=== PATIENT | female | born 1990 | race African-American/Black ===

== ENCOUNTER 2016-09-16 15:16 | Emergency (ER) | payer OTHER, SELFPAY ==
[~2016-09-16] VITALS: Ht 165.1 cm; Wt 101.6 kg
[~2016-09-16 15:16] MED LIST: ALBUTEROL2.5 MG/3 M HHN
[2016-09-16 16:05] VITALS: BP 128/92
[2016-09-16] MEDS ORDERED: ACETAMINOPHEN-1 EAC1 ORAL (16:24)
[2016-09-16] MEDS ORDERED: BACTRIM DS TAB1 EAC1 ORAL (16:24)
[2016-09-16] MEDS ORDERED: CLINDAMYCIN HC300 MG ORAL (16:24)
[2016-09-16 16:30] VITALS: BP 128/92
[2016-09-16] MEDS ORDERED: Tylenol #3 tab (300mg/30mg) ORAL ONE (16:30)
--- NOTE | 2016-09-16 20:26 | Emergency Room Report ---
History of Present Illness General Chief Complaint: Animal Bite Source: Patient Present Illness HPI 26-year-old female presents ED complaining of left hand pain and swelling. States that 2 days ago she was scratched by her cat. States her cat has all vaccinations. Patient is here complaining of pain and increased swelling. patient believes there is an infection. Denies any fevers or chills. Pain is a 10 out of 10, throbbing localized to the second and third finger, nonradiating. Worse with flexion and extension. No other aggravating or relieving factors. Denies any other injuries. Denies any other associated symptoms Allergies: Coded Allergies: PENICILLINS (Verified Allergy, Mild, Hives, 10/25/12) Patient History Past Medical History: asthma, migraines Past Surgical History: none Pertinent Family History: none Social History: Denies: alcohol use, drug use, smoking Last Menstrual Period: 08/30/16 Now: No Immunizations: UTD Reviewed Nursing Documentation: PMH: Agreed, PSxH: Agreed Nursing Documentation-PMH Hx Hypertension: Yes Hx Asthma: Yes Hx Neurological Problems: Yes - migrain Review of Systems All Other Systems: negative except mentioned in HPI Physical Exam Vital Signs Date Time Temp Pulse Resp B/P Pulse Ox O2 Delivery O2 Flow Rate FiO2 09/16/16 15:50 97.0 77 14 128/92 100 Room Air Sp02 EP Interpretation: reviewed, normal General Appearance: no apparent distress, alert, GCS 15, non-toxic Head: normocephalic Eyes: bilateral eye PERRL, bilateral eye normal inspection ENT: normal ENT inspection Neck: normal inspection Respiratory: normal inspection Cardiovascular #1: normal inspection Gastrointestinal: normal inspection Rectal: deferred Genitourinary: no CVA tenderness Musculoskeletal: back normal, gait/station normal, calf tenderness, decreased range of motion, swelling - L hand Neurologic: alert, oriented x3, responsive, motor strength/tone normal, sensory intact, speech normal Psychiatric: judgement/insight normal Skin: other - swelling/erythema to 2nd/3rd digits L hand. no fluctuance Lymphatic: normal inspection Medical Decision Making Diagnostic Impression: Primary Impression: Cat scratch of hand Qualified Codes: S60.512A - Abrasion of left hand, initial encounter; W55.03XA - Scratched by cat, initial encounter Additional Impression: Cellulitis of hand, left ER Course Hospital Course 18-year-old female presents ED complaining of pain and swelling to left hand status post cat scratch/bite Differential diagnoses include: Cellulitis, dermatitis, abscess Clinical course Patient placed on stretcher. After initial history, physical exam reveals a young female in no acute distress. On exam there increased swelling to the second and third digits of the left hand. No fluctuance. No discharge. Limited to the second and third digits not extending into the palmar aspect or into the wrist. She appears nontoxic, afebrile. Looks well. However I do believe patient will require antibiotics. I did offer patient option for admission for IV antibiotics. Patient states she will prefer to try antibiotic prescription first. I encouraged patient to followup in the next 3-4 days to make sure it is improving. I did tell the patient if it does not improve she will likely require admission for IV antibiotics Patient understands Diagnosis - Scratch, cellulitis of hand stable and discharged to home with prescription for clindamycin, bactrim, tylenol #3. warm compresses. return to ED in 3-4 days for wound check. Instructed return to ED if symptoms recur or worsen Last Vital Signs Date Time Temp Pulse Resp B/P Pulse Ox O2 Delivery O2 Flow Rate FiO2 09/16/16 17:25 97.0 09/16/16 16:30 87 14 128/92 100 Room Air Status: improved Disposition: HOME, SELF-CARE Condition: Stable Scripts Acetaminophen With Codeine (T#3) (TYLENOL #3 TAB*) Y Tab 1 TAB ORAL Q8H Y for For Pain, #20 TAB Prov: RYLEE SANTOYO M.D. 09/16/16 Clindamycin Hcl (CLINDAMYCIN HCL) 300 Mg Capsule 300 MG ORAL THREE TIMES A DAY, #21 CAP Prov: RYLEE SANTOYO M.D. 09/16/16 Trimethoprim/Sulfamethoxazole 160/800* (BACTRIM DS TABLET*) 1 Each Tablet 1 TAB ORAL Q12H, #14 TAB 0 Refills Prov: RYLEE SANTOYO M.D. 09/16/16 Referrals: [facility],REFERRING (PCP) Patient Instructions: Animal Bite RYLEE SANTOYO M.D. Sep 16, 2016 20:26
== END 2016-09-16 17:20 | disposition home or self-care (01) ==
LOC: EMR 16:46
DX: S60.512A Abrasion of left hand, initial encounter (principal); L03.114 Cellulitis of left upper limb; W55.03XA Scratched by cat, initial encounter; Y93.9 Activity, unspecified; Y92.9 Unspecified place or not applicable; Z88.0 Allergy status to penicillin; I10 Essential (primary) hypertension; Z87.09 Personal history of other diseases of the respiratory system
CPT/HCPCS: 99284